=== PATIENT | female | born 1985 | race Caucasian/White ===

== ENCOUNTER 2019-07-22 10:03 | Emergency (ER) | payer OTHER ==
[~2019-07-22] VITALS: Ht 165.1 cm; Wt 108.9 kg
[2019-07-22] MEDS ORDERED: UNICOMPLEX M TA1 TA1 PO (10:25)
[2019-07-22] MEDS ORDERED: PREDNISONE50 MG PO (13:10)
[2019-07-22] MEDS ORDERED: DIPHENHIST50 MG PO (13:10)
[2019-07-22] MEDS ORDERED: EPIPEN0.3 MG/0.1 IM (13:10)
[2019-07-22 14:00] VITALS: BP 142/80
== END 2019-07-22 14:05 | disposition home or self-care (01) ==
LOC: M.ERS 10:03
DX: T78.40XA Allergy, unspecified, initial encounter (principal); R42 Dizziness and giddiness; X58.XXXA Exposure to other specified factors, initial encounter